=== PATIENT | male | born 1960 ===

== ENCOUNTER 2019-01-29 20:02 | Observation (INO) ==
--- NOTE | 2019-01-29 20:23 | Emergency Department Note ---
Fall HPI - General Chief Complaint: Fall Stated Complaint: pain after fall Time Seen by Provider: 01/29/19 20:07 Source: patient, EMS Mode of arrival: EMS - History of Present Illness HPI Narrative: This patient fell off a 10 foot roof and landed on his feet and went down to his knees. He has some pain in the left foot and the right proximal fibula. Slight abrasion to the left knee. No injury to head neck arms or chest or back. - Related Data Allergies Allergy/AdvReac Type Severity Reaction Status Date / Time No Known Allergies Allergy Verified 01/29/19 20:08 Review of Systems All systems ED: reviewed and negative except as stated. Fall PMH - Past Medical History Medical history: Reports: no medical history - Social History smoking status: Current every day smoker Physical Exam He has swelling and tenderness to the left anterior foot. No calcaneus or ankle tenderness. Slight tenderness to the right proximal fibula but no other knee tenderness. Slight abrasion to the left knee. Limitations: no limitations General appearance: alert Head: atraumatic, normocephalic Neurological: Present: alert Psychiatric: Present: normal affect Skin: Present: warm, dry Course Vital Signs Temperature 97.3 F 01/29/19 20:03 Pulse Rate 60 01/29/19 20:03 Respiratory Rate 18 01/29/19 20:03 Blood Pressure 131/86 01/29/19 20:03 Pulse Oximetry (%) 98 01/29/19 20:03 Temperature 97.3 F 01/29/19 20:03 Pulse Rate 60 01/29/19 20:57 Respiratory Rate 16 01/29/19 20:57 Blood Pressure 120/78 01/29/19 20:57 Pulse Oximetry (%) 98 01/29/19 20:57 Fall - MDM Narrative Medical decision making narrative: This patient has a fracture of his left first tarsal bone and a right proximal fibula fracture. The foot fracture will require surgery and I will admit the patient for Dr. Richey to the hospital. We will obtain a CT scan of the foot. - Radiology Data Radiology results reviewed: Yes I reviewed the patient's radiology results. Disposition Pt seen by RN OTOLARYNGOLOGY/PA only: No Clinical Impression: Foot fracture, left, Right fibular fracture Disposition: Xfer As Outpt/Obs ([facility]) Condition: Good Referrals: Louis Hanson MD [Primary Care Provider] - Time of Disposition: 21:45
[2019-01-29] MEDS ORDERED: ONDANSETRON 4 MG/2 ML VIAL IV PRN (21:46)
[2019-01-29] MEDS ORDERED: LACTATED RINGERS 1,000 ML IV ONE (21:57)
[2019-01-29] MEDS ORDERED: ONDANSETRON 4 MG/2 ML VIAL IV ONE (21:57)
[2019-01-29] MEDS ORDERED: HYDROmorphone 2 MG/ML VIAL ONE ×2 (22:00→22:43)
[2019-01-29] MEDS ORDERED: ONDANSETRON 4 MG/2 ML VIAL ONE (22:01)
[2019-01-29] MEDS: HYDROmorphone 2 MG/ML VIAL IV PRN ×2 (22:03→22:47)
[2019-01-29 22:38] LABS: Basophils # (Auto) 0 K/mcL (0.0-0.3); Basophils % (Auto) 0 % (0.0-2.0); Eosinophils # (Auto) 0.1 K/mcL (0.0-0.7); Eosinophils % (Auto) 0.8 % (0.0-7.0); Granulocytes % (Auto) 82.6 % (38.0-78.0); Hematocrit 39.6 % (41.0-55.0); Hemoglobin 13.6 g/dL (13.5-16.5); Lymphocytes # (Auto) 1.3 K/mcL (1.5-4.8); Lymphocytes % (Auto) 10.9 % (15.5-49.0); Mean Corpuscular HGB Conc 34.4 g/dL (31.0-36.0); Mean Platelet Volume 7.9 fL (7.4-10.4); Monocytes # (Auto) 0.7 K/mcL (0.1-0.9); Monocytes % (Auto) 5.7 % (1.0-12.0); Platelet Count 235 K/mcL (140-440); Red Cell Distribution Width 13.2 % (11.5-14.5); WBC 12.1 K/mcL (4.5-11.0)
[2019-01-29] MEDS: LACTATED RINGERS 1,000 ML IV SCH (22:47)
[2019-01-29 22:58] LABS: ALT/SGPT 15 U/l (0-40); AST/SGOT 15 U/l (0-37); Albumin 4.3 gm/dL (3.2-5.2); Albumin/Globulin Ratio 1.7 (1.0-2.3); Alkaline Phosphatase 121 U/L (39-117); Bilirubin,Total 0.3 mg/dL (0.0-1.0); Blood Urea Nitrogen 20 mg/dl (6-20); Calcium 9.1 mg/dl (8.6-10.4); Carbon Dioxide 23 mmol/L (22-30); Chloride 106 mmol/L (96-108); Globulin 2.6 gm/dL (2.2-3.7); Glomerular Filtration Rate 83; Glucose 110 mg/dL (70-105); Potassium 4.3 mmol/L (3.3-5.1); Sodium 140 mmol/L (133-145)
[2019-01-30 01:55] LABS: Appearance,Urine CLEAR; Bacteria,Urine 0 /hpf (0); Bilirubin,Urine NEG (NEG); Color,Urine YELLOW; Culture Indicated,Urine NO; Glucose,Urine (UA) NEGATIVE (NEG); Ketones,Urine NEG (NEG); Leukocyte Esterase,Urine NEG /uL (NEG); Mucus,Urine MANY /hpf (0); Nitrate,Urine NEG (NEG); Protein,Urine 30 mg/dL (NEG); Specific Gravity,Urine 1.025 (1.000-1.035); Urine Blood NEG mg/dL (<0.03); Urine RBC 1 /hpf (0-1); Urine Squamous Epithelial Cell 0 /hpf (0-4); Urine WBC < 1 /hpf (0-4); Urobilinogen,Urine NEG (NEG)
--- NOTE | 2019-01-30 04:04 | XRay Report ---
CLINICAL INFORMATION: Trauma COMPARISON: None. FINDINGS: Mild degenerative changes noted in patellofemoral and medial tibiofemoral joint. No effusions are present. A mildly comminuted nondisplaced fracture of the fibular head and neck appreciated. The soft tissues are normal. IMPRESSION: Mildly comminuted nondisplaced fracture of the fibular head and neck. Mild patellofemoral and medial tibiofemoral degeneration Interpreted and Authenticated by: Andrés Rogers 01/30/19
--- NOTE | 2019-01-30 04:11 | XRay Report ---
CLINICAL INFORMATION: trauma COMPARISON: None. FINDINGS: There is an oblique fracture the base of the first metatarsal. The distal fragment is displaced 15 mm into the overlying dorsal soft tissues. There is also approximately 5 mm of medial displacement. Mild resorption about the fracture line suggests this may be chronic. There is also an oblique fracture through the second metatarsal head and neck. The proximal fragment is displaced 5 mm the lateral and plantar direction. There is also mild resorption about the fracture line indicating this may be chronic. IMPRESSION: Displaced fracture through the base of the first metatarsal and the second metatarsal head and neck. Follow-up CT to be performed Interpreted and Authenticated by: Andrés Rogers 01/30/19
--- NOTE | 2019-01-30 04:12 | XRay Report ---
CLINICAL INFORMATION: Trauma COMPARISON: None. FINDINGS: The heart size, mediastinum and pulmonary vessels are unremarkable. The lungs are clear. There are no effusions. The bones and soft tissues are within normal limits. IMPRESSION: Normal chest. Interpreted and Authenticated by: Andrés Rogers 01/30/19
[2019-01-30] MEDS: LACTATED RINGERS 1,000 ML IV SCH ×2 (04:33→13:43)
[2019-01-30] MEDS ORDERED: SCOPOLAMINE 1 PATCH PATCH TOPICAL PRN (05:00)
[2019-01-30] MEDS ORDERED: IPRATROPIUM/ALBUTEROL 3 ML AMPUL.NEB NEB PRN (05:00)
--- NOTE | 2019-01-30 06:45 | XRay Report ---
CLINICAL INFORMATION: Trauma COMPARISON: None. FINDINGS: No fracture or other osseous abnormality identified. Ankle mortise and talocalcaneal joints are normal in width and alignment without evidence of arthritis. Soft tissues are unremarkable. IMPRESSION: Normal ankle. Interpreted and Authenticated by: Andrés Rogers 01/30/19
--- NOTE | 2019-01-30 07:01 | Cat Scan Report ---
CLINICAL INFORMATION: trauma COMPARISON: None. TECHNIQUE: 0.625 mm helical slices were obtained from the distal one third of the tibia and fibula through the ankle and foot. Following reconstruction, 2.5 mm axial, sagittal coronal reformatted images were processed and reviewed in bone and soft tissue windows. 3-D volume rendered images were also obtained at independent workstation FINDINGS: There are multiple acute fractures: A severely comminuted fracture through the proximal first metatarsal. The distal fragment is displaced 2 cm into the dorsal soft tissues. There is complete incongruity of the first MTT joint surface. A moderately comminuted coronal and transverse fracture through the middle cuneiform demonstrates no displacement. Surrounding joints are congruent. A mildly comminuted obliquely oriented fracture of the second metatarsal head and neck with resultant mild impaction. The distal fragment is displaced less than 5 mm laterally. A minimally comminuted oblique fracture of the third metatarsal neck appreciated. The head is displaced less than 5 mm in a plantar direction. A malunified old fracture of the anterior process of the calcaneus results in minimal deformity. A comminuted old avulsion fracture off the medial malleolar tip results in 4-5 small loose bodies within the anterior medial ankle mortise ranging up to 3 mm. There is also a 6 mm ossification in the anterior lateral ankle mortise. This likely represents an old avulsion fracture off the tip of the lateral malleolus The joint spaces are, otherwise, normal. Diffuse edema seen throughout the ankle and forefoot IMPRESSION: 1. Severely comminuted, markedly displaced, fracture through the first metatarsal base. There is complete disarticulation of the first MTT 2. Mildly displaced, comminuted fracture second metatarsal head and neck 3. Minimally displaced acute fracture third metatarsal neck 4. Nondisplaced, comminuted acute fracture of the middle cuneiform 5. Malunified old fracture of the anterior process of the calcaneus with mild deformity 6. Comminuted old avulsion fractures off the posterior medial malleolus resulting in 5-6 loose bodies in the medial ankle mortise ranging up to 3 mm. There is also a 6 mm loose body in the anterolateral ankle mortise likely an old avulsion fracture off the lateral malleolus tip. These may predispose to premature ankle degeneration Interpreted and Authenticated by: Andrés Rogers 01/30/19
--- NOTE | 2019-01-30 07:07 | Orthopedic Progress Note ---
Subjective Patient information: Note initiated : 01/30/19 at 7:05 am Service Date, if different from initiated Date: [] Patient: Lb Ruiz 58 y/o M admitted on 01/29/19 for pain after fall. Chief Complaint: [] Interval history: doing ok. pain improved Objective Vital signs: Vital Signs Temp Pulse Pulse Resp BP BP BP 01/30/19 06:31 98.6 F 16 126/73 01/30/19 04:19 98.5 F 68 16 124/74 01/29/19 23:59 98.0 F 62 16 125/75 01/29/19 23:45 98.0 F 62 16 125/75 01/29/19 23:00 57 L 119/74 01/29/19 22:45 68 119/86 01/29/19 22:30 75 122/62 01/29/19 22:00 59 L 125/73 01/29/19 21:45 57 L 131/71 01/29/19 21:15 56 L 130/86 01/29/19 20:57 60 16 120/78 01/29/19 20:15 59 L 149/78 01/29/19 20:03 97.3 F 60 14 131/86 Pulse Ox 01/30/19 06:31 96 01/30/19 04:19 97 01/29/19 23:59 97 01/29/19 23:45 97 01/29/19 23:00 96 01/29/19 22:45 98 01/29/19 22:30 96 01/29/19 22:00 99 01/29/19 21:45 99 01/29/19 21:15 97 01/29/19 20:57 98 01/29/19 20:15 97 01/29/19 20:03 98 Intake and Output 01/29/19 01/30/19 01/30/19 21:59 05:59 13:59 Intake Total 1864 Balance 1864 Intake: IV 1865 Lactated Ringers 1,000 ml @ 150 1865 mls/hr IV .[id number] [facility] Rx#: [id number] Oral 0 Other: Weight 180 lb 173 lb Intake & Output: Intake & Output 01/29/19 01/30/19 01/30/19 21:59 05:59 13:59 Intake Total 186 Balance 1865 Weight 180 lb 173 lb Intake: IV 1865 Lactated Ringers 1,000 ml @ 150 1865 mls/hr IV .Q6H40M [facility] Rx#: [id number] Oral 0 Incision: Yes healing Weight bearing status: non (left leg) Neurological exam IM: Yes abnormal gait, Yes alert, Yes oriented X3, Yes neurovascular intact Extremities exam IM: No calf tenderness, Yes normal inspection, Yes Foot pink and warm, Yes neurovascular intact - Labs CBC & BMP: 01/29/19 21:50 01/29/19 21:50 Labs: 01/29/19 21:50 Hgb 13.6 Hct 39.6 L Assessment and Plan (1) Foot fracture, left comminuted first metatarsal fx left foot, second metatarsal fracture left foot, right proximal fibula fracture nwb lle boot pain control f/u with [facility] tomorrow ice elevate surgery early next week when swelling down and plates available Status: Acute
--- NOTE | 2019-01-30 07:08 | Discharge Summary ---
Ortho Discharge Plan - General - Patient Instructions Diet: Regular Diet Activity: non weight bearing - Problem Maintenance (1) Foot fracture, left Status: Acute - Follow Up Plan Follow Up Appointments: Louis Hanson MD [Primary Care Provider] - Disposition: Home, Self-Care Prognosis: Good Rehab Potential: Good I certify that the patient requires SNF services: No Overall status at discharge: patient is progressing back to baseline
--- NOTE | 2019-01-30 07:50 | History and Physical Report ---
DATE OF ADMISSION: 01/29/2019 CHIEF COMPLAINT: Bilateral lower extremity injury. HISTORY OF PRESENT ILLNESS: The patient is a pleasant 58-year-old male. He was power-washing up on a roof and he fell about 10 feet, landing directly onto his feet. He complained of right knee pain and left foot pain. He did not hit his head and had no loss consciousness; no other musculoskeletal complaints. PAST MEDICAL HISTORY: Negative. PAST SURGICAL HISTORY: None. MEDICATIONS: None. ALLERGIES: NKDA. FAMILY HISTORY: Negative. SOCIAL HISTORY: He currently works. He smokes daily. He denies alcohol or illicit drugs. REVIEW OF SYSTEMS: No recent chest pain, shortness of breath, fever, chills, nausea, vomiting, diarrhea or constipation. PHYSICAL EXAM: GENERAL: He is resting on the hospital bed, in no acute distress. He is alert and oriented x3 and cooperative to exam. VITAL SIGNS: Temperature 97.3, pulse 60, respirations 18, BP 131/86, pulse ox 98% on room air. HEART: Regular rate and rhythm without murmur or gallop. CHEST: Clear to auscultation in all lung iraheta bilaterally. ABDOMEN: Soft, nontender, nondistended. NECK/BACK: Full range of motion, nontender to palpation. EXTREMITIES: The right lower extremity demonstrates proximal fibular tenderness. He has no tenderness throughout the tibial shaft or the ankle. He has full range of motion of the ankle, stable to anterior drawer and talar tilt, negative external rotation stress test. The left foot demonstrates marked swelling and tenderness over the first metatarsal of the great toe and second toe. Sensation is intact to light touch grossly throughout the extremity, 2+ DP and PT with capillary refill less than 2 seconds. Stable to anterior drawer and talar tilt. RADIOGRAPHS: Three views of the right knee demonstrate a nondisplaced proximal fibular fracture. No other abnormalities identified. Three views of the right ankle demonstrate no evidence of fracture or dislocation; stable mortis. Three views of the left foot and CT scan of the left foot with reconstruction demonstrated a comminuted first metatarsal fracture at the joint with displacement of the fracture superiorly and comminution. The joint is subluxed. There is a displaced distal metatarsal fracture of the second. No other abnormalities were identified. ASSESSMENT: 1. Nondisplaced proximal fibular fracture without evidence of ankle injury or syndesmosis or Maisonneuve injury. 2. Comminuted displaced fracture of the first metatarsal base and second metatarsal distally. PLAN: I talked to Dr. Shea, our foot and ankle specialist. At this point I would recommend we splint the left lower extremity, which was done. We will ice and elevate and try to get the swelling down over the weekend. We will have him follow up in the office and schedule for surgery early in the week when the swelling is down and we can get specialized plates from [facility]. We will continue to follow him closely. He is able to weightbear as tolerated on the right lower extremity. We will reevaluate in the office to make sure the ankle is looking okay. I gave him some pain medication and he is comfortable with this plan. DENYS:brianna Job ID: [id number] Doc ID: [id number] Federica Richey MD
== END 2019-01-30 14:25 | disposition home or self-care (01) ==
LOC: MEDSUR 20:02 → ED 20:02 → MEDSUR 23:45
PROVIDERS: ADMIT Orthopaedic Surgery Sports Medicine; ATTEND Orthopaedic Surgery Sports Medicine